=== PATIENT | female | born 1950 | race Caucasian/White ===

== ENCOUNTER 2018-10-17 17:42 | Emergency (ER) | payer MEDICARE, SELFPAY ==
[2018-10-17 17:43] VITALS: BP 198/80; PULSE 71; RESP 14; TEMP 36.4; O2SAT 99; BMI 27.8
--- NOTE | 2018-10-17 18:28 | ED.DCSUM_ITS ---
History of Present Illness Chief Complaint: Foreign Body Informant: Patient Onset: Hours - 4-5 Context: Sudden Onset - eating armenian w/ chicken Timing: Continuous Quality: FB sens Location: lower throat Current Severity: Moderate Maximum Severity: Moderate Worsened by: trying to swallow Relieved by: nothing Associated Symptoms: vomiting Narrative: Patient states she had this happen one other time but it self resolved. She has had an EGD in the past but remotely, states it was unremarkable. She states she did not detect any bones but suspect she ate a large chunk of meat that she did not chew well, and it got stuck when she swallowed it. Since then, she has been swallowing her saliva, and each time results in vomiting it up. Food still feels stuck. She is on Eliquis because of a history of atrial fibrillation. Denies having any hematemesis. No coughing, choking, shortness of breath. - Past Medical History (1) Atrial fibrillation Status: Chronic (2) Hypertension Status: Chronic (3) Hyperlipidemia Status: Chronic Past Medical History - Allergies and Home Meds Allergies/Adverse Reactions: Allergies amoxicillin Allergy (Verified 10/17/18 17:43) Hives clavulanic acid [From Augmentin] Allergy (Verified 10/17/18 17:43) Hives Penicillins Allergy (Verified 10/17/18 17:43) Hives codeine Adverse Reaction (Verified 10/17/18 17:43) Vomiting Primary Care Physician: Marco Hess MD [Primary Care Provider] - Lives: Spouse/ Significant Other Smoking Status: Never smoker Review of Systems General: Denies: Chills, Fever, Sweats Eyes: Denies: Visual changes - bilaterally, Diplopia ENT: Reports: - - Throat discomfort foreign body sensation. Denies: Rhinorrhea Cardiovascular: Denies: Chest pain, Palpitations Respiratory: Denies: Dyspnea, Cough, Dyspnea on exertion Gastrointestinal: Reports: Nausea, Vomiting. Denies: Abdominal pain, Diarrhea, Melena, Hematochezia Genitourinary: Denies: Dysuria, Hematuria, Frequency Musculoskeletal: Denies: Back pain, Extremity Pain Skin: Denies: Rash, Wounds Neurological: Reports: Headache - Since vomiting several times; bifrontal. Denies: Weakness, Numbness Physical Exam Vital Signs/Narrative: Vital Signs Temp Pulse Resp BP Pulse Ox 10/17/18 17:43 97.5 F L 71 14 198/80 H 99 Inital Vital Signs reviewed: Yes General: Well nourished, Well developed, No Acute Distress Head: Normocephalic, Atraumatic Eyes: Perrl, EOMI ENT: Moist mucous membranes, No rhinorrhea, - - Posterior oropharynx clear. No stridor. No hoarseness. Neck: Supple, Nontender Cardiovascular: Regular rate, Regular rhythm, No murmurs Respiratory: No distress, CTA bilaterally - Equal breath signs bilaterally., Chest nontender Abdomen: Soft, Nontender, Nondistended, Normal bowel sounds Back: Nontender, Normal Inspection Skin: Normal color, No rash Neurological: Alert, Oriented x3, Cranial nerves II-XII grossly intact, Normal Strength, Normal Sensation, Normal Gait Psychological: Normal affect, Normal Mood Diagnostic/Tx/Re-eval Clinical Impression(s) from Imaging Studies Chest X-Ray 10/17/18 18:29 IMPRESSION: Normal x-ray examination of the chest. Electronically Signed: Maciej Norris MD at 19:01 EDT , Service support , - Medical Decision Making Patient was treated with glucagon, and she was observed. She felt the food go down. She states she feels much better. I gave her some water she swallowed without any difficulty. Certainly I am comfortable with her being discharged at this time, she saw Dr. Lock in the past for an EGD and I will give her his information again as he still comes to [facility] and does outpatient scopes. ED Disposition - Plan for ED Patient: Disposition: Home or Assisted Living Diagnosis: FB esophagus Instructions: ESOPHAGEAL FOREIGN BODY, Resolved Referrals: Blake Lock MD [CONSULTING PHYSICIAN] - (Call for appointment for endoscopy to be performed here at [facility].)
--- NOTE | 2018-10-17 18:29 | RAD_ITS ---
STUDY: X-RAY CHEST REASON FOR EXAM: Female, 68 years old. PT REPORTS WITH CHICKEN STUCK IN THROAT SINCE 1430. DENIES SOB OR DIFFICULTY BREATHING. TECHNIQUE: Single AP portable view of the chest. COMPARISON: None. FINDINGS: Surgical clips seen related to the right breast. The lungs are clear and expanded. There is no demonstrated pleural abnormality. Normal size heart. Normal mediastinum and isaac. Normal visualized pulmonary arteries. Normal visualized aortic arch and descending thoracic aorta. Normal visualized thoracic spine. Normal visualized ribs, clavicles, and shoulders. There is no demonstrated abnormality of the visualized soft tissue structures of the upper abdomen. RAD/Chest 1 View (Portable) IMPRESSION: Normal x-ray examination of the chest. Electronically Signed: Maciej Norris MD at 19:01 EDT , Service support ,
[2018-10-17] MEDS: Glucagon 1 MG/ML Syringe IV (18:45)
[2018-10-17 18:46] LABS: Bedside Glucose 139 mg/dL (70-110)
[2018-10-17 20:20] VITALS: BP 141/69; PULSE 70; RESP 17; O2SAT 96
[2018-10-17 20:39] VITALS: BP 144/71; PULSE 68; RESP 17; O2SAT 99
== END 2018-10-17 20:40 | disposition home or self-care (01) ==
PROVIDERS: Emergency Provider Emergency Medicine; Family Provider Family Medicine; PCP Family Medicine
DX: T18.128A Food in esophagus causing other injury, initial encounter (principal); X58.XXXA Exposure to other specified factors, initial encounter; Y93.9 Activity, unspecified; Y92.9 Unspecified place or not applicable; I48.91 Unspecified atrial fibrillation; I10 Essential (primary) hypertension; E78.5 Hyperlipidemia, unspecified; Z79.01 Long term (current) use of anticoagulants; Z79.899 Other long term (current) drug therapy
CPT/HCPCS: 71045; 82962; 96374; 99283; A4216; J1610

== ENCOUNTER 2020-03-13 18:00 | Outpatient (RCR) | payer SELFPAY ==
[2020-02-28 19:08] VITALS: BMI 29.7
[2020-03-06 19:46] VITALS: BMI 29.7
[2020-03-14 12:15] VITALS: BMI 29.3
== END 2020-03-13 23:59 ==
LOC: NS 18:00
PROVIDERS: Family Provider Family Medicine; PCP Family Medicine
DX: Z71.3 Dietary counseling and surveillance (principal)
CPT/HCPCS: G9873; G9891

== ENCOUNTER 2020-04-10 18:00 | Outpatient (RCR) | payer SELFPAY ==
[2020-03-06 19:46] VITALS: BMI 29.7
[2020-03-14 12:15] VITALS: BMI 29.3
[2020-03-20 19:24] VITALS: BMI 29.3
[2020-03-27 19:30] VITALS: BMI 29.0
[2020-04-03 19:00] VITALS: BMI 28.8
[2020-04-10 19:39] VITALS: BMI 28.6
== END 2020-04-15 23:59 ==
LOC: NS 18:00
PROVIDERS: Family Provider Family Medicine; PCP Family Medicine
DX: Z71.3 Dietary counseling and surveillance (principal)
CPT/HCPCS: G9874; G9891

== ENCOUNTER 2020-04-24 16:47 | Outpatient (RCR) | payer MEDICARE, SELFPAY ==
[2020-04-24] MEDS: COVID-19 VACC, MRNA(PFIZER)/PF 30 MCG/0.3 ML SYRINGE IM (12:37)
[2020-04-24 19:19] VITALS: BMI 28.5
[2020-05-15] MEDS: COVID-19 VACC, MRNA(PFIZER)/PF 30 MCG/0.3 ML SYRINGE IM (12:29)
== END 2020-07-24 23:59 ==
LOC: IMMUN 16:47
PROVIDERS: PCP Family Medicine; Visit Provider Family Medicine
DX: Z23 Encounter for immunization (principal)
CPT/HCPCS: 0001A; 0002A; 91300

== ENCOUNTER 2020-04-24 18:00 | Outpatient (RCR) | payer SELFPAY ==
[2020-04-24 19:19] VITALS: BMI 28.5
[2020-05-08 19:39] VITALS: BMI 28.0
== END 2020-05-16 23:59 ==
LOC: NS 18:00
PROVIDERS: Family Provider Family Medicine; PCP Family Medicine
DX: Z71.3 Dietary counseling and surveillance (principal)
CPT/HCPCS: G9891

== ENCOUNTER 2020-06-05 18:00 | Outpatient (RCR) | payer MEDICARE, SELFPAY ==
[2020-05-23 13:23] VITALS: BMI 27.6
[2020-06-06 20:04] VITALS: BMI 27.8
== END 2020-06-15 23:59 ==
LOC: NS 18:00
PROVIDERS: Family Provider Family Medicine; PCP Family Medicine
DX: Z71.3 Dietary counseling and surveillance (principal)
CPT/HCPCS: G9891

== ENCOUNTER 2020-07-03 18:00 | Outpatient (RCR) | payer SELFPAY ==
[2020-06-19 20:16] VITALS: BMI 27.2
[2020-07-03 19:35] VITALS: BMI 27.2
== END 2020-07-16 23:59 ==
LOC: NS 18:00
DX: Z71.3 Dietary counseling and surveillance (principal)
CPT/HCPCS: G9891

== ENCOUNTER 2020-08-14 18:00 | Outpatient (RCR) | payer SELFPAY ==
[2020-07-17 19:36] VITALS: BMI 27.1
[2020-08-01 13:21] VITALS: BMI 26.9
[2020-08-14 20:02] VITALS: BMI 26.6
== END 2020-08-15 23:59 ==
LOC: NS 18:00
DX: Z71.3 Dietary counseling and surveillance (principal)
CPT/HCPCS: G9891

== ENCOUNTER 2020-09-04 18:00 | Outpatient (RCR) | payer SELFPAY ==
[2020-09-03 18:12] VITALS: BMI 26.6
[2020-09-04 19:46] VITALS: BMI 26.8
== END 2020-09-15 23:59 ==
LOC: NS 18:00
DX: Z71.3 Dietary counseling and surveillance (principal)
CPT/HCPCS: G9891

== ENCOUNTER 2020-10-16 18:00 | Outpatient (RCR) | payer SELFPAY ==
[2020-09-19 08:45] VITALS: BMI 26.7
[2020-10-03 09:52] VITALS: BMI 26.8
[2020-10-16 19:44] VITALS: BMI 26.9
== END 2020-10-16 23:59 ==
LOC: NS 18:00
DX: Z71.3 Dietary counseling and surveillance (principal)
CPT/HCPCS: G9891

== ENCOUNTER 2020-11-13 18:00 | Outpatient (RCR) | payer SELFPAY ==
[2020-10-17 00:23] VITALS: BMI 26.9
[2020-10-31 10:45] VITALS: BMI 26.7
[2020-11-14 12:48] VITALS: BMI 26.6
== END 2020-11-15 23:59 ==
LOC: NS 18:00
DX: Z71.3 Dietary counseling and surveillance (principal)
CPT/HCPCS: G9891

== ENCOUNTER 2020-12-11 18:00 | Outpatient (RCR) | payer SELFPAY ==
[2020-11-16 00:17] VITALS: BMI 26.6
[2020-11-27 19:30] VITALS: BMI 26.6
[2020-12-11 19:27] VITALS: BMI 27.1
== END 2020-12-16 23:59 ==
LOC: NS 18:00
DX: Z71.3 Dietary counseling and surveillance (principal)
CPT/HCPCS: G9891

== ENCOUNTER 2021-01-08 18:00 | Outpatient (RCR) | payer SELFPAY ==
[2020-12-17 00:14] VITALS: BMI 27.1
[2021-01-09 10:33] VITALS: BMI 27.1
== END 2021-01-15 23:59 ==
LOC: NS 18:00
DX: Z71.3 Dietary counseling and surveillance (principal)
CPT/HCPCS: G9891

== ENCOUNTER → 2021-01-24 13:05 | Outpatient (CLI) | payer SELFPAY ==
--- NOTE | 2021-01-23 15:57 | NURSING ---
PT VOICEMAIL FULL. INSTRUCTIONS GIVEN TO .
[2021-01-24 13:35] VITALS: BP 116/61; PULSE 70; RESP 16; O2SAT 96; BMI 27.0
--- NOTE | 2021-01-24 14:25 | CT_ITS ---
STUDY: CT CHEST WITHOUT CONTRAST REASON FOR EXAM: Female, 70 years old. FAMILY HX OF ISCHEMIC. Cardiac ovary examination. RADIATION DOSAGE (If Supplied By Facility): CTDIvol = ( 12.19 ) mGy, DLP = ( 219.42 ) mGycm TECHNIQUE: Transaxial imaging was performed without the administration of intravenous contrast material. Individualized dose optimization techniques were used for this CT. COMPARISON: None. FINDINGS: There is a 1.4 cm densely calcified nodule in the deep posterior inferior aspect of the right breast. The lungs are normal. There is no demonstrated pleural abnormality. There are calcifications of the coronary arteries. There are multiple small lymph nodes within the mediastinum, which are normal in size and morphology most compatible with reactive lymph hyperplasia. Normal hilar regions. Normal unenhanced pulmonary arteries. There is atherosclerotic calcification of the aortic arch with tortuosity and elongation of the aortic arch and descending thoracic aorta. There are multi-level degenerative changes of the thoracic spine. Small hiatal hernia. CT/Limited Chest CT w/CCTA IMPRESSION: 1.4 cm densely calcified nodule in the deep posterior inferior aspect of the right breast. Coronary artery calcification. Electronically Signed: Jeff Patricia MD at 14:47 EST , Service support ,
--- NOTE | 2021-01-24 17:11 | CA.SCORE ---
Calcium Scoring Coronary Calcium Scoring: High-resolution Computed Tomographic imaging of the chest was performed on [01/24/2021], with particular attention paid to the coronary arteries. Images from the examination were analyzed for the presence and extent of coronary artery calcification , using coronary calcium quantification software. The patient tolerated the procedure well and there were no complications. The results of the coronary calcification analysis are provided below. Left main coronary artery score 9.75. Left anterior descending artery score 630 Left circumflex artery score 225 Right coronary artery score 223 Total Agatston score 1088 The above represents a percentile ranking of greater than 90%. Conclusion: There is extensive plaque burden noted with a high likelihood of at least 1 coronary artery with a stenosis greater than 50%. Calcium Scoring Interpretation: 0 No identifiable atherosclerotic plaque. Very low cardiovascular disease risk. <5% chance of presence coronary artery disease A Negative Examination 1-10 Minimal Plaque burden. Significant coronary artery disease very unlikely. 11-100 Mild plaque burden. Likely mild or minimal coronary atherosclerosis. 101-400 Moderate plaque burden Moderate non-obstructive coronary artery disease highly likely. Over 400 Extensive plaque burden. High likelihood of at least one significant coronary stenosis (>50% diameter)
== END ==
PROVIDERS: PCP Student in an Organized Health Care Education/Training Program; Referring Provider Internal Medicine Cardiovascular Disease; Visit Provider Internal Medicine Cardiovascular Disease
DX: Z13.6 Encounter for screening for cardiovascular disorders (principal); Z82.49 Family history of ischemic heart disease and other diseases of the circulatory system
CPT/HCPCS: 75571; 76380

== ENCOUNTER 2021-02-05 18:00 | Outpatient (RCR) | payer SELFPAY ==
[2021-01-16 00:19] VITALS: BMI 27.1
[2021-01-22 19:30] VITALS: BMI 27.8
[2021-02-06 19:21] VITALS: BMI 28.3
== END 2021-02-15 23:59 ==
LOC: NS 18:00
DX: Z71.3 Dietary counseling and surveillance (principal); E66.9 Obesity, unspecified
CPT/HCPCS: G9891

== ENCOUNTER → 2021-09-23 | Outpatient (CLI) | payer MEDICARE, SELFPAY ==
[2021-09-23 15:28] LABS: Absolute Lymphocyte Count 1.99 X10^3/uL (0.83-4.51); Absolute Neutrophil Count 6.3 X10^3/uL (2.0-7.7); Basophil% 1.1 % (0-1); Eosinophil# 0.08 X10^3/uL; Eosinophils% 0.9 % (0-5); Hematocrit 43.2 % (37-47); Hemoglobin 14.2 g/dL (12.0-15.0); Lymphocyte # 1.99 X10^3/ul (0.83-4.51); Lymphocyte % 21.8 % (19-41); Mean Corp Hgb Conc 32.9 g/dL (32-36); Mean Corpuscular Hgb 30.5 pg (27.0-32.0); Mean Corpuscular Volume 92.9 fL (81-99); Mean Platelet Vol. 10.3 fl (6.2-12.0); Monocyte# 0.64 X10^3/uL; NRBC Flagged by Analyzer 0 % (0-5); Neutrophil # 6.31 X10^3/uL (2.7-7.7); Platelet Count 275 K/mm3 (150-450); RBC Distribution Width CV 12.7 % (11.6-14.6); RBC Distribution Width SD 43.4 fl (35.1-43.9); Red Blood Count 4.65 M/mm3 (4.2-5.4); White Blood Count 9.1 K/mm3 (4.4-11.0)
[2021-09-23 17:01] LABS: AST(SGOT) 26 U/L (15-37); Alanine Aminotransfer ALT/SGPT 36 U/L (13-56); Alkaline Phosphatase 89 U/L (45-117); Anion Gap 7 (5-15); BUN 31 mg/dL (7-18); BUN/Creat Ratio 26.1 RATIO (10-20); Calcium,Total 9.6 mg/dL (8.5-10.1); Chloride 103 mmol/L (98-107); Creatinine, Serum 1.19 mg/dL (0.55-1.02); EST Glomerular Filtration Rate 48 mL/min (>60); Est Glom Filt Rate - Afr Amer 58 mL/min (>60); Glucose 92 mg/dL (74-106); Potassium 3.8 mmol/L (3.5-5.1); Sodium Level 137 mmol/L (136-145)
[2021-09-24 09:26] LABS: Hepatitis C Antibody Non-Reactive (Nonreactive)
== END | disposition home or self-care (01) ==
PROVIDERS: PCP Student in an Organized Health Care Education/Training Program; Referring Provider Physician Assistant; Visit Provider Physician Assistant
DX: L66.1 Lichen planopilaris (principal)
CPT/HCPCS: 36415; 80053; 85025; 86803

== ENCOUNTER 2022-01-02 14:16 | Emergency (ER) | payer MEDICARE, SELFPAY ==
[2022-01-02 14:17] VITALS: BP 166/84; PULSE 76; RESP 14; TEMP 36.4; O2SAT 100; BMI 27.1
[2022-01-02 14:46] LABS: Absolute Lymphocyte Count 2.72 X10^3/uL (0.83-4.51); Absolute Neutrophil Count 7.3 X10^3/uL (2.0-7.7); Basophil# 0.13 X10^3/uL; Basophil% 1.2 % (0-1); Eosinophils% 0.9 % (0-5); Hematocrit 47.7 % (37-47); Hemoglobin 15.6 g/dL (12.0-15.0); Lymphocyte # 2.72 X10^3/ul (0.83-4.51); Lymphocyte % 24.9 % (19-41); Mean Corp Hgb Conc 32.7 g/dL (32-36); Mean Corpuscular Hgb 30.4 pg (27.0-32.0); Mean Corpuscular Volume 92.8 fL (81-99); Mean Platelet Vol. 9.8 fl (6.2-12.0); Monocyte# 0.62 X10^3/uL; Monocyte% 5.7 % (0-10); NRBC Flagged by Analyzer 0 % (0-5); Neutrophil # 7.34 X10^3/uL (2.7-7.7); Platelet Count 329 K/mm3 (150-450); RBC Distribution Width CV 12.5 % (11.6-14.6); RBC Distribution Width SD 42.9 fl (35.1-43.9); Red Blood Count 5.14 M/mm3 (4.2-5.4); White Blood Count 10.9 K/mm3 (4.4-11.0)
[2022-01-02 14:56] LABS: Anion Gap 6 (5-15); BUN 31 mg/dL (7-18); BUN/Creat Ratio 24.8 RATIO (10-20); Calcium,Total 10.5 mg/dL (8.5-10.1); Chloride 101 mmol/L (98-107); Creatinine, Serum 1.25 mg/dL (0.55-1.02); EST Glomerular Filtration Rate 45 mL/min (>60); Est Glom Filt Rate - Afr Amer 55 mL/min (>60); Estimated Creatinine Clearance 38.22 ml/min; Glucose 114 mg/dL (74-106); Potassium 4.2 mmol/L (3.5-5.1); Sodium Level 136 mmol/L (136-145)
--- NOTE | 2022-01-02 15:02 | ED.VIS.FEGU ---
HPI HPI - Female History of Present Illness Chief Complaint: Flank Pain Narrative Narrative: 71-year-old female with flank pain for the last 2 weeks. She states its achy and has been intermittent. Last night she had nausea and vomiting. This is also intermittent. No fever, chills. She does say that she is had some dysuria and hematuria over the last 24 hours. She was seen in urgent care and they were very suspicious of a kidney stone. She was referred to the ER for evaluation. Patient has no history of kidney stones. She states he is otherwise been in her normal state of health. PFSH PFS Medical History Atrial fibrillation HX: breast cancer Pre-diabetes Home Medications apixaban 5 mg tablet 5 mg PO BID 10/17/18 [History Last Taken Unknown] fluoxetine 20 mg capsule 20 mg PO DAILY 10/17/18 [History Last Taken Unknown] lisinopril 5 mg tablet 5 mg PO DAILY 10/17/18 [History Last Taken Unknown] metoprolol succinate 50 mg tablet,extended release 24 hr 50 mg PO DAILY 10/17/18 [History Last Taken Unknown] rosuvastatin 20 mg tablet 20 mg PO QHS 10/17/18 [History Last Taken Unknown] hydrocodone-acetaminophen 5-325mg 5mg-325mg 1 tab PO Q6H PRN pain 3 days #12 tabs 01/02/22 [Rx Last Taken Unknown] ondansetron 4 mg disintegrating tablet 4 mg PO Q8H PRN nausea and vomiting #10 tabs 01/02/22 [Rx Last Taken Unknown] Allergy/AdvReac Type Severity Reaction Status Date / Time adhesive tape [surgical tape] Allergy Hives Verified 01/02/22 14:18 amoxicillin Allergy Hives Verified 01/02/22 14:18 clavulanic acid Allergy Hives Verified 01/02/22 14:18 [From Augmentin] Penicillins Allergy Hives Verified 01/02/22 14:18 codeine AdvReac Vomiting Verified 01/02/22 14:18 Social History Smoking Status: Never smoker ROS ROS ED Constitutional Constitutional ED: Denies chills or fever(s) Eyes Eyes: Denies change in vision or diplopia ENT ENT ED: Denies rhinorrhea or sore throat Cardiovascular Cardiovascular: Denies chest pain or palpitations Respiratory/Chest Respiratory/Chest: Denies cough or dyspnea Gastrointestinal Gastrointestinal: Reports nausea and vomiting Genitourinary Genitourinary ED: Reports dysuria and hematuria Musculoskeletal Musculoskeletal: Reports other Details: Left flank pain Integumentary Denies abscess or Abrasions Neurologic Neurologic: Denies headache(s) or paresthesias Psychiatric Psychiatric: Denies anxiety or depression EXAM Physical Exam Const Vital Signs: 01/02/22 14:17 Temperature 97.6 F L Temperature Source Temporal Pulse Rate 76 Respiratory Rate 14 Blood Pressure 166/84 H Blood Pressure Mean 111 Pulse Ox 100 Oxygen Delivery Method Room Air Positive well nourished General Appearance ED: NAD; Negative for pallor HEENT Reports moist mucous membranes Eyes PERRL and EOMs intact bilaterally Neck no lymphadenopathy Chest Wall inspection of chest normal and palpation of chest normal Resp normal respiratory effort and clear to auscultation bilaterally Cardio regular rate and regular rhythm Back/Spine General Back: CVA tenderness left Extremity normal to inspection Neuro oriented x3 and CN's II-XII intact bilaterally Sensorium / Orientation: alert Motor Exam: strength 5/5 throughout Psych mental status grossly normal Skin no rashes or lesions noted General Skin Exam: Negative for jaundice or pallor MDM MDM MDM Narrative Medical decision making narrative: Patient presenting with left flank pain for 2 weeks. CBC shows no leukocytosis. Hemoglobin slightly elevated 15.6. Platelets normal 329. Creatinine 1.25 and near baseline. Sodium potassium are normal. Calcium slightly elevated 10.5. Patient was given Toradol for pain and she does not want a thing stronger. CT of the abdomen pelvis without contrast shows a 1.1 cm x 0.8 cm calculus in the left renal pelvis with only minimal hydronephrosis. Urinalysis shows occult blood without evidence of infection. Patient is done well with just Toradol here in the ED. I think she will need to follow-up with urology. I will give her some [place] and Zofran for home in case she does have breakthrough pain. Impression: 1. Hematuria 2. Kidney stone 3. Flank pain 4. Nausea/vomiting Lab Data Attestation: I reviewed the patient's lab results. Labs: Laboratory Results - last 24 hr 01/02/22 01/02/22 01/02/22 14:27 14:27 15:18 WBC 10.9 RBC 5.14 Hgb 15.6 H Hct 47.7 H MCV 92.8 MCH 30.4 MCHC 32.7 RDW Std Deviation 42.9 RDW Coeff of John 12.5 Plt Count 329 MPV 9.8 Immature Gran % (Auto) 0.300 Neut % (Auto) 67.0 Lymph % (Auto) 24.9 Frio % (Auto) 5.7 Eos % (Auto) 0.9 Baso % (Auto) 1.2 H Absolute Neuts (auto) 7.3 Absolute Lymphs (auto) 2.72 Nucleated RBC % 0 Sodium 136 Potassium 4.2 Chloride 101 Carbon Dioxide 29.0 Anion Gap 6 BUN 31 H Creatinine 1.25 H Estim Creat Clear Calc 38.22 Est GFR (MDRD) Af Amer 55 L Est GFR (MDRD) Non-Af 45 L BUN/Creatinine Ratio 24.8 H Glucose 114 H Calcium 10.5 H Urine Color Brown Urine Clarity Turbid Urine pH 6.5 Ur Specific [place] 1.025 Urine Protein 500 H Urine Glucose (UA) Normal Urine Ketones 50 H Urine Occult Blood 250 H Urine Nitrite Negative Urine Bilirubin Negative Urine Urobilinogen Normal Ur Leukocyte Esterase 25 H Radiography Diagnostic Testing: Clinical Impression(s) from Imaging Studies Abdomen/Pelvis CT 01/02/22 15:06 IMPRESSION: 1.1 cm x 0.8 cm calculus in the left renal pelvis without significant hydronephrosis. Fatty infiltration of the liver. Electronically Signed: Jeff Patricia MD at 15:28 EST , Discharge Plan Triage Chief Complaint: Flank Pain ED Provider: William Dockery Dx/Rx/DC Orders Prescriptions: New hydrocodone-acetaminophen 5-325 mg tablet 1 tab PO Q6H PRN (Reason: pain) 3 Days Qty: 12 0RF ondansetron 4 mg tablet,disintegrating 4 mg PO Q8H PRN (Reason: nausea and vomiting) Qty: 10 0RF No Action metoprolol succinate 50 MG tablet 50 mg PO DAILY lisinopril 5 MG tablet 5 mg PO DAILY Label Comments: Take 1 tablet by mouth once daily. fluoxetine 20 MG capsule 20 mg PO DAILY Label Comments: Take 1 capsule by mouth once daily. rosuvastatin 20 MG tablet 20 mg PO QHS Label Comments: TAKE 1 TABLET BY MOUTH AT BEDTIME apixaban 5 MG tablet 5 mg PO BID Primary Care Provider: Mono Morrison Referrals: Beba Hendricks MD [Med Staff - Active Staff] - As soon as possible Mono Morrison DO [Primary Care Provider] - Disposition Disposition: Home, Self Care
[2022-01-02] MEDS: Ketorolac 15 MG/ML Vial IV (15:05)
--- NOTE | 2022-01-02 15:06 | CT_ITS ---
STUDY: CT ABDOMEN AND PELVIS WITHOUT CONTRAST REASON FOR EXAM: Female, 71 years old. Left flank pain. Hematuria. RADIATION DOSAGE (If Supplied By Facility): CTDIvol = ( 9.02 ) mGy, DLP = ( 459.63 ) mGycm TECHNIQUE: Transaxial images were obtained from the dome of the diaphragm to the symphysis pubis without oral contrast, and without intravenous contrast. Sagittal and coronal images were reconstructed. Individualized dose optimization techniques were used for this CT. COMPARISON: None. FINDINGS: The visualized lung bases are unremarkable. Coronary artery calcification. There is decreased attenuation of the liver consistent with steatosis. Impression multiple small gallstones. Normal spleen. Normal pancreas. Normal bilateral adrenal glands. Normal right kidney. There is a 1.1 cm x 0.8 cm x 1.2 cm calculus in the left renal pelvis. No significant hydronephrosis is seen. There is a small hiatal hernia. Normal small intestine. Normal colon. The appendix is visualized and appears normal. There is diffuse atherosclerotic calcification of the abdominal aorta and its major visceral branches, without a demonstrated aneurysm. Normal inferior vena cava. There is borderline retroperitoneal lymphadenopathy with enlarged nodes no greater than 10mm in the short axis diameter. Normal urinary bladder. Normal abdominal wall. Normal osseous structures. CT/Abdomen/Pelvis without Cont IMPRESSION: 1.1 cm x 0.8 cm calculus in the left renal pelvis without significant hydronephrosis. Fatty infiltration of the liver. Electronically Signed: Jeff Patricia MD at 15:28 EST ,
[2022-01-02 16:01] LABS: Bacteria 0 SEEN /hpf (None Seen); Mucous, Urine 0 SEEN /hpf (<or=2+)
[2022-01-02 16:05] LABS: Color, Urine Brown (Yellow); Glucose, Dipstick Normal (Normal); Ketone-Dipstick 50 mg/dl (Negative); Leukocyte Esterase-Dipstick 25 /ul (Negative); Nitrite-Dipstick Negative (Negative); Occult Blood-Urine 250 /ul (Negative); Protein-Dipstick 500 mg/dl (Negative); Specific Gravity, Urine 1.025 (1.002-1.030); Urine Bilirubin Dipstick Negative (Negative); Urine Clarity Turbid (Clear); Urine Urobilinogen Normal (Normal); Urine pH 6.5 (5.0 - 8.0)
[2022-01-02 16:19] LABS: Amorphous Sediment 2+ URATE; Red Blood Cells-Urine > 100 SEEN /hpf (0-5); Squamous Epithelial Cells - UA 5-10 SEEN /hpf (5-10); White Blood Cells 0-5 SEEN /hpf (0-5)
[2022-01-02 16:22] VITALS: BP 127/63; PULSE 60; RESP 16; O2SAT 98
== END 2022-01-02 16:34 | disposition home or self-care (01) ==
PROVIDERS: Emergency Provider Student in an Organized Health Care Education/Training Program; PCP Student in an Organized Health Care Education/Training Program; Visit Provider Student in an Organized Health Care Education/Training Program
DX: N13.2 Hydronephrosis with renal and ureteral calculous obstruction (principal); R10.9 Unspecified abdominal pain; R11.2 Nausea with vomiting, unspecified; R31.9 Hematuria, unspecified; R30.0 Dysuria
CPT/HCPCS: 74176; 80048; 81001; 85025; 96374; 99283; A4216

== ENCOUNTER 2022-01-07 20:59 | Observation (INO) | payer MEDICARE, SELFPAY ==
[2022-01-07 21:00] VITALS: BP 170/98; PULSE 84; RESP 16; TEMP 36.3; O2SAT 98; BMI 27.6
--- NOTE | 2022-01-07 22:14 | EDS_ITS ---
HPI History of Present Illness Chief Complaint: Flank Pain Informant: patient Onset/Context/Timing Onset: Days (5) Context: Sudden Onset Timing: Continuous Quality: Dull Location: Left flank and left lower abdomen Worsened by: Nothing Relieved by: Nothing Narrative Narrative: Patient presents with left flank pain that became worse today. Patient was seen here recently diagnosed with kidney stone on the left. Patient states that her pain has gotten worse tonight. Patient describes it as dull pain. Patient states it is over the left flank and left lower abdomen. Patient states nothing makes it worse and nothing makes it better. Patient denies any fevers or ch ills. Patient admits to some nausea and vomiting. Patient admits to some hematuria. Patient states her pain radiates into her back and flank. Patient also admits to some constipation. Prior similar symptoms: Yes PFSH [facility] Medical History (Updated 01/07/22 @ 23:[address] Yan Hoover, DO) Atrial fibrillation HX: breast cancer Pre-diabetes Home Medications apixaban 5 mg tablet 5 mg PO BID 10/17/18 [History Last Taken Unknown] fluoxetine 20 mg capsule 20 mg PO DAILY 10/17/18 [History Last Taken Unknown] lisinopril 5 mg tablet 5 mg PO DAILY 10/17/18 [History Last Taken Unknown] metoprolol succinate 50 mg tablet,extended release 24 hr 50 mg PO DAILY 10/17/18 [History Last Taken Unknown] rosuvastatin 20 mg tablet 20 mg PO QHS 10/17/18 [History Last Taken Unknown] hydrocodone-acetaminophen 5-325mg 5mg-325mg 1 tab PO Q6H PRN pain 3 days #12 tabs 01/02/22 [Rx Last Taken Unknown] ondansetron 4 mg disintegrating tablet 4 mg PO Q8H PRN nausea and vomiting #10 tabs 01/02/22 [Rx Last Taken Unknown] Allergy/AdvReac Type Severity Reaction Status Date / Time adhesive tape [surgical tape] Allergy Hives Verified 01/07/22 21:00 amoxicillin Allergy Hives Verified 01/07/22 21:00 cephalexin [From Keflex] Allergy Rash Verified 01/07/22 21:00 clavulanic acid Allergy Hives Verified 01/07/22 21:00 [From Augmentin] Penicillins Allergy Hives Verified 01/07/22 21:00 codeine AdvReac Vomiting Verified 01/07/22 21:00 Surgical History (Updated 01/07/22 @ 22:[address] Yan Hoover DO) History of lumpectomy of right breast Hx of appendectomy Social History Smoking Status: Never smoker ROS ROS ED Constitutional Constitutional ED: Denies chills or fever(s) Eyes Eyes: Denies blurry vision or change in vision ENT ENT ED: Denies rhinorrhea or sore throat Cardiovascular Cardiovascular: Reports palpitations; Denies chest pain Respiratory/Chest Respiratory/Chest: Denies cough or dyspnea Gastrointestinal Gastrointestinal: Reports constipation, nausea and vomiting Genitourinary Genitourinary ED: Reports hematuria; Denies dysuria Musculoskeletal Musculoskeletal: Reports back pain; Denies neck pain Integumentary Denies abscess or rash Neurologic Neurologic: Denies headache(s) or weakness Allergic/Immunologic Allergic/Immunologic ED: Denies mouth swelling or urticaria EXAM Physical Exam Const Vital Signs: 01/07/22 21:00 01/07/22 22:10 Temperature 97.3 F L Temperature Source Temporal Pulse Rate 84 Respiratory Rate 16 Respiratory Effort Normal Respiratory Pattern Normal Blood Pressure 170/98 H Blood Pressure Mean 122 Pulse Ox 98 Oxygen Delivery Method Room Air Positive well nourished and well developed General Appearance ED: well developed and NAD HEENT Reports moist mucous membranes Neck supple and no JVD Resp normal respiratory effort and clear to auscultation bilaterally Cardio regular rate and regular rhythm GI normal to inspection, nondistended, normoactive bowel sounds and non-distended Palpation: soft and tender LLQ and suprapubic Back/Spine General Back: CVA tenderness left Extremity normal to inspection General Extremety ED: Negative for edema or tenderness General Extremity: Negative for edema Neuro oriented x3, CN's II-XII intact bilaterally and no sensory deficits noted Sensorium / Orientation: alert Motor Exam: strength 5/5 throughout Psych mental status grossly normal MDM MDM MDM Narrative Medical decision making narrative: Patient was given IV fluids, morphine, and Zofran. EKG was obtained. On my interpretation, it showed a normal sinus rhythm with a rate of 65. [place] interval, QRS interval, and QTc intervals were all normal. [place] was normal. There are no acute ST or T wave changes. CBC shows a slight leukocytosis of 12.0. Comprehensive metabolic profile shows a BUN of 37 and creatinine 1.64. These are slightly increased from previous results. Urinalysis shows occult blood of 250 with greater than 100 red blood cells. There is no evidence of urinary tract infection. KUB abdominal x-rays were obtained. There are 2 views. On my interpretation, there is still a large calculus in the left renal pelvis area. There is no evidence of constipation or bowel obstruction. There is no evidence of perforation. Radiologist also interpreted the x-rays and agrees. PT was INR and PTT were within normal limits. Case was discussed with Dr. Hendricks. She will admit the patient for observation and place a stent tomorrow. Patient understands and is agreeable with the plan. All questions were answered. Lab Data Attestation: I reviewed the patient's lab results. Labs: Laboratory Results - last 24 hr 01/07/22 01/07/22 01/07/22 22:10 22:22 22:22 WBC 12.0 H RBC 4.89 Hgb 14.8 Hct 43.9 MCV 89.8 MCH 30.3 MCHC 33.7 RDW Std Deviation 40.9 RDW Coeff of John 12.4 Plt Count 299 MPV 9.8 Immature Gran % (Auto) 0.300 Neut % (Auto) 79.2 H Lymph % (Auto) 14.3 L [place] % (Auto) 4.9 Eos % (Auto) 0.5 Baso % (Auto) 0.8 Absolute Neuts (auto) 9.5 H Absolute Lymphs (auto) 1.71 Nucleated RBC % 0 PT INR APTT Sodium 140 Potassium 4.5 Chloride 103 Carbon Dioxide 27.0 Anion Gap 10 BUN 37 H Creatinine 1.64 H Estim Creat Clear Calc 29.13 Est GFR (MDRD) Af Amer 40 L Est GFR (MDRD) Non-Af 33 L BUN/Creatinine Ratio 22.6 H Glucose 179 H Calcium 11.0 H Total Bilirubin 0.60 AST 23 ALT 31 Alkaline Phosphatase 85 Total Protein 8.6 H Albumin 4.5 Globulin 4.1 Albumin/Globulin Ratio 1.1 Urine Color Red Urine Clarity Turbid Urine pH 7.0 Ur Specific [place] 1.020 Urine Protein 500 H Urine Glucose (UA) Normal Urine Ketones 50 H Urine Occult Blood 250 H Urine Nitrite Negative Urine Bilirubin Negative Urine Urobilinogen Normal Ur Leukocyte Esterase Negative Urine RBC > 100 SEEN Urine WBC 0 SEEN Ur Squamous Epith Cells 0 SEEN Urine Bacteria 0 SEEN Urine Mucus 0 SEEN 01/07/22 22:35 WBC RBC Hgb Hct MCV MCH MCHC RDW Std Deviation RDW Coeff of John Plt Count MPV Immature Gran % (Auto) Neut % (Auto) Lymph % (Auto) [place] % (Auto) Eos % (Auto) Baso % (Auto) Absolute Neuts (auto) Absolute Lymphs (auto) Nucleated RBC % PT 14.6 INR 1.2 APTT 33.1 Sodium Potassium Chloride Carbon Dioxide Anion Gap BUN Creatinine Estim Creat Clear Calc Est GFR (MDRD) Af Amer Est GFR (MDRD) Non-Af BUN/Creatinine Ratio Glucose Calcium Total Bilirubin AST ALT Alkaline Phosphatase Total Protein Albumin Globulin Albumin/Globulin Ratio Urine Color Urine Clarity Urine pH Ur Specific [place] Urine Protein Urine Glucose (UA) Urine Ketones Urine Occult Blood Urine Nitrite Urine Bilirubin Urine Urobilinogen Ur Leukocyte Esterase Urine RBC Urine WBC Ur Squamous Epith Cells Urine Bacteria Urine Mucus Radiography Diagnostic Testing: Clinical Impression(s) from Imaging Studies KUB X-Ray 01/07/22 22:45 IMPRESSION: 15 mm left renal calculus stable to slightly migrated compared to the prior given differences in modality. Electronically Signed: Hari Ngo MD at 22:58 EST , EKG Initial EKG: Attestation: I personally reviewed and interpreted this EKG as follows: Interpretation: Sinus Rhythm (65) and No Acute Injury Pattern Prior EKG tracings: not available for review Prior: No Prior Discharge Plan Dx/Rx/DC Orders Clinical Impression: Calculus of left kidney, Hypertension, Hematuria Disposition Disposition: Acute Care Hospital [facility]
--- NOTE | 2022-01-07 22:18 | EKG12_ITS ---
Test Reason : DYSRHYTHMIA Blood Pressure : / mmHG Vent. Rate : 065 BPM Atrial Rate : 065 BPM P-R Int : 156 ms QRS Dur : 096 ms QT Int : 432 ms P-R-T Axes : 063 061 063 degrees QTc Int : 449 ms Normal sinus rhythm Normal ECG Confirmed by RUSSEL SHAHID, DELIA ([id number]), publication editor MARIA DE JESUS CASTILLO ([id number]) on 01/08/2022 9:14:11 AM Referred By: SASHA Confirmed By:DELIA GOODE MD
[2022-01-07 22:30] LABS: Bacteria 0 SEEN /hpf (None Seen); Mucous, Urine 0 SEEN /hpf (<or=2+); Squamous Epithelial Cells - UA 0 SEEN /hpf (5-10); White Blood Cells 0 SEEN /hpf (0-5)
[2022-01-07 22:32] LABS: Color, Urine Red (Yellow); Glucose, Dipstick Normal (Normal); Ketone-Dipstick 50 mg/dl (Negative); Leukocyte Esterase-Dipstick Negative /ul (Negative); Nitrite-Dipstick Negative (Negative); Occult Blood-Urine 250 /ul (Negative); Protein-Dipstick 500 mg/dl (Negative); Urine Bilirubin Dipstick Negative (Negative); Urine Clarity Turbid (Clear); Urine Urobilinogen Normal (Normal)
[2022-01-07 22:32] LABS: Absolute Lymphocyte Count 1.71 X10^3/uL (0.83-4.51); Absolute Neutrophil Count 9.5 X10^3/uL (2.0-7.7); Basophil# 0.09 X10^3/uL; Basophil% 0.8 % (0-1); Eosinophil# 0.06 X10^3/uL; Eosinophils% 0.5 % (0-5); Hematocrit 43.9 % (37-47); Hemoglobin 14.8 g/dL (12.0-15.0); Lymphocyte # 1.71 X10^3/ul (0.83-4.51); Lymphocyte % 14.3 % (19-41); Mean Corp Hgb Conc 33.7 g/dL (32-36); Mean Corpuscular Hgb 30.3 pg (27.0-32.0); Mean Corpuscular Volume 89.8 fL (81-99); Mean Platelet Vol. 9.8 fl (6.2-12.0); Monocyte# 0.59 X10^3/uL; Monocyte% 4.9 % (0-10); NRBC Flagged by Analyzer 0 % (0-5); Neutrophil # 9.49 X10^3/uL (2.7-7.7); Neutrophil % 79.2 % (47-70); Platelet Count 299 K/mm3 (150-450); RBC Distribution Width CV 12.4 % (11.6-14.6); RBC Distribution Width SD 40.9 fl (35.1-43.9); Red Blood Count 4.89 M/mm3 (4.2-5.4)
[2022-01-07] MEDS: 0.9% Normal Saline 1,000 ML 1000 ML IV (22:35)
[2022-01-07] MEDS: Morphine 4 MG/ML Syringe IV (22:37)
[2022-01-07] MEDS: Ondansetron 4 MG/2 ML Vial IV (22:37)
--- NOTE | 2022-01-07 22:45 | RAD_ITS ---
INDICATION: Kidney stone EXAMINATION/TECHNIQUE: X-RAY - XR Abdomen 1 View COMPARISON: CT abdomen and pelvis 01/02/2022 FINDINGS: Nonobstructive bowel gas pattern. Mild increased stool. Evaluation for free air is limited on supine radiographs. 15 mm calcification at L2-3 level, similar to slightly migrated compared to the prior given differences in modality. RAD/Abdomen Single View (Portable) IMPRESSION: 15 mm left renal calculus stable to slightly migrated compared to the prior given differences in modality. Electronically Signed: Hari Ngo MD at 22:58 EST ,
[2022-01-07 22:53] LABS: Red Blood Cells-Urine > 100 SEEN /hpf (0-5)
[2022-01-07 22:57] LABS: ALB/GLOB Ratio 1.1 RATIO (0.9-2.4); AST(SGOT) 23 U/L (15-37); Alanine Aminotransfer ALT/SGPT 31 U/L (13-56); Albumin, Serum 4.5 g/dL (3.2-5.0); Alkaline Phosphatase 85 U/L (45-117); Anion Gap 10 (5-15); BUN 37 mg/dL (7-18); BUN/Creat Ratio 22.6 RATIO (10-20); Chloride 103 mmol/L (98-107); Creatinine, Serum 1.64 mg/dL (0.55-1.02); EST Glomerular Filtration Rate 33 mL/min (>60); Est Glom Filt Rate - Afr Amer 40 mL/min (>60); Estimated Creatinine Clearance 29.13 ml/min; Globulin 4.1 g/dL (2.2-4.2); Glucose 179 mg/dL (74-106); Potassium 4.5 mmol/L (3.5-5.1); Protein, Total 8.6 g/dL (6.4-8.2); Sodium Level 140 mmol/L (136-145)
[2022-01-07 22:59] LABS: International Normalized Ratio 1.2; Prothrombin Time (Protime)PT. 14.6 SECONDS (11.7-14.9)
[2022-01-07 23:00] LABS: Partial Thromboplast Time 33.1 Seconds (24.1-36.2)
[2022-01-07 23:46] VITALS: BP 191/81; PULSE 70; RESP 18; TEMP 36.8; O2SAT 92
[2022-01-08] VITALS (14 sets, daily range): BP systolic 99–198; BP diastolic 48–70; PULSE 56–69; RESP 16; TEMP 36.4–36.9; O2SAT 92–98; BMI 26.9
[2022-01-08] MEDS: Dext 5%-0.45% NS 1,000 ML 125 ML IV (01:14)
[2022-01-08] MEDS: 0.9% Saline Lock 10 ML Syringe IV ×2 (01:15→01:46)
[2022-01-08] MEDS: Ondansetron 4 MG/2 ML Vial IV (01:45)
[2022-01-08] MEDS: Morphine 2 MG/ML Syringe IV (01:47)
[2022-01-08] MEDS: Metoprolol(XL)Succ 50 MG Tablet PO (07:52)
--- NOTE | 2022-01-08 09:33 | NURSING ---
Pt off floor for surgery
[2022-01-08] MEDS: Lactated Ringers 1,000 ML 15 ML IV (09:43)
--- NOTE | 2022-01-08 10:21 | PCM.HP.STD ---
[facility] - General General Date of Admission: 01/07/22 HPI Narrative MEENAKSHI MADRID, is a 71 F who who was admitted from the emergency room yesterday with a diagnosis of left obstructing UPJ calculus with uncontrolled nausea, vomiting, pain and hematuria. She is already on the schedule for cystoscopy with stent insertion and left renal extracorporal shockwave lithotripsy. She reports that her pain is not controlled after intravenous medication administration. [facility] Medical History (Updated 01/08/22 @ 10:[address] Beba Hendricks MD) Asthma Atrial fibrillation Depression History of stress test HX: breast cancer Post-menopausal Pre-diabetes Renal insufficiency Home Medications apixaban 5 mg tablet 5 mg PO BID 10/17/18 [History Last Taken 01/07/22 10:00] fluoxetine 20 mg capsule 20 mg PO DAILY 10/17/18 [History Last Taken Unknown] lisinopril 5 mg tablet 5 mg PO DAILY 10/17/18 [History Last Taken Unknown] metoprolol succinate 50 mg tablet,extended release 24 hr 50 mg PO DAILY 10/17/18 [History Last Taken Unknown] rosuvastatin 20 mg tablet 20 mg PO QHS 10/17/18 [History Last Taken Unknown] hydrocodone-acetaminophen 5-325mg 5mg-325mg 1 tab PO Q6H PRN pain 3 days #12 tabs 01/02/22 [Rx Last Taken Unknown] ondansetron 4 mg disintegrating tablet 4 mg PO Q8H PRN nausea and vomiting #10 tabs 01/02/22 [Rx Last Taken Unknown] Allergy/AdvReac Type Severity Reaction Status Date / Time adhesive tape [surgical tape] Allergy Hives Verified 01/07/22 21:00 amoxicillin Allergy Hives Verified 01/07/22 21:00 cephalexin [From Keflex] Allergy Rash Verified 01/07/22 21:00 clavulanic acid Allergy Hives Verified 01/07/22 21:00 [From Augmentin] Penicillins Allergy Hives Verified 01/07/22 21:00 codeine AdvReac Vomiting Verified 01/07/22 21:00 Surgical History History of lumpectomy of right breast Hx of appendectomy Social History Smoking Status: Never smoker ROS Constitutional Constitutional: Denies chills, fatigue, fever(s) or lethargy Eyes Eyes: Reports systems reviewed and no addt'l complaints, except as documented ENT HEENT: Reports systems reviewed and no addt'l complaints, except as documented Cardiovascular Cardiovascular: Reports nausea and vomiting; Denies chest pain or dyspnea at rest Respiratory/Chest Respiratory/Chest: Denies chest congestion, chest tightness, cough or inability to speak Gastrointestinal Gastrointestinal: Reports nausea and vomiting Genitourinary Genitourinary: Reports flank pain and hematuria; Denies dysuria, urinary hesitancy or urinary urgency Musculoskeletal Musculoskeletal: Reports systems reviewed and no addt'l complaints, except as documented Integumentary Integumentary: Reports systems reviewed and no addt'l complaints, except as documented Neurologic Neurologic: Reports systems reviewed and no addt'l complaints, except as documented Psychiatric Psychiatric: Reports systems reviewed and no addt'l complaints, except as documented Endocrine Endocrinology: Reports systems reviewed and no addt'l complaints, except as documented Hematologic/Lymphatic Hematologic/Lymphatic: Reports systems reviewed and no addt'l complaints, except as documented Allergic/Immunologic Allergic/Immunologic: Reports systems reviewed and no addt'l complaints, except as documented Vital Signs Vital Signs Vital Signs: 01/07/22 21:00 01/07/22 22:10 01/07/22 23:46 Temperature 97.3 F L 98.3 F Temperature Source Temporal Oral Pulse Rate 84 70 Respiratory Rate 16 18 Respiratory Effort Normal Respiratory Depth Respiratory Pattern Normal Blood Pressure 170/98 H 191/81 H Blood Pressure [BP] Blood Pressure Mean 122 117 Blood Pressure Mean [BP] Blood Pressure Source Blood Pressure Position Blood Pressure Location Pulse Ox 98 92 Oxygen Delivery Method Room Air Room Air 01/08/22 01:02 01/08/22 01:25 01/08/22 00:58 Temperature 98.5 F Temperature Source Oral Pulse Rate 65 69 Respiratory Rate 16 Respiratory Effort Normal Non-Labored Respiratory Depth Normal Respiratory Pattern Normal Blood Pressure 198/70 H Blood Pressure [BP] 161/53 H Blood Pressure Mean 112 Blood Pressure Mean [BP] 89 Blood Pressure Source Blood Pressure Position Blood Pressure Location Pulse Ox 98 Oxygen Delivery Method Room Air Room Air 01/08/22 01:42 01/08/22 07:38 01/08/22 07:52 Temperature 98.5 F 98.4 F Temperature Source Oral Oral Pulse Rate 65 66 66 Respiratory Rate 16 16 Respiratory Effort Respiratory Depth Respiratory Pattern Blood Pressure 161/53 H 160/70 H Blood Pressure [BP] Blood Pressure Mean 89 100 Blood Pressure Mean [BP] Blood Pressure Source Monitor Blood Pressure Position Blood Pressure Location Pulse Ox 98 98 Oxygen Delivery Method Room Air Room Air 01/08/22 08:02 01/08/22 07:42 01/08/22 07:42 Temperature 98.4 F 98.4 F Temperature Source Oral Oral Pulse Rate 66 66 Respiratory Rate 16 16 Respiratory Effort Respiratory Depth Respiratory Pattern Blood Pressure 160/70 H 160/70 H Blood Pressure [BP] Blood Pressure Mean 100 100 Blood Pressure Mean [BP] Blood Pressure Source Monitor Blood Pressure Position Semi-Fowlers Blood Pressure Location Right Arm Pulse Ox 98 98 98 Oxygen Delivery Method Room Air Room Air Room Air 01/08/22 09:00 Temperature Temperature Source Pulse Rate Respiratory Rate Respiratory Effort Normal Respiratory Depth Normal Respiratory Pattern Normal Blood Pressure Blood Pressure [BP] Blood Pressure Mean Blood Pressure Mean [BP] Blood Pressure Source Blood Pressure Position Blood Pressure Location Pulse Ox Oxygen Delivery Method Room Air Weight Weight: 75.65 kg Body Mass Index (BMI) 26.9 Physical Exam Const alert, oriented x3 and no apparent distress General Appearance: cooperative, comfortable and well kempt HEENT normocephalic, head/scalp atraumatic, hearing grossly normal bilaterally, external ears normal, external nose normal and moist oral mucous membranes Eyes no scleral icterus General Eye: normal appearance of both eyes Neck supple General: trachea midline Chest inspection of chest normal Chest: symmetrical chest wall rise Resp normal respiratory effort, normal air movement, no retractions and no use of accessory muscles Cardio regular rate GI soft to palpation, non-tender and non-distended Bladder / Kidney Exam: CVA tenderness left Back/Spine General Back: CVA tenderness left Extremity normal to inspection Skin no rashes or lesions noted, no wounds, skin turgor normal, no jaundice, no petechiae and no mottling Neuro oriented x3, CN's II-XII intact bilaterally and moves all extremities Psych mental status grossly normal, thought process normal, cooperative and affect normal Results Lab / Micro Data Result Diagrams: 01/07/22 22:22 01/07/22 22:22 Labs: Laboratory Results - last 24 hr 01/07/22 22:10: Urine Color Red, Urine Clarity Turbid, Urine pH 7.0, Ur Specific [place] 1.020, Urine Protein 500 H, Urine Glucose (UA) Normal, Urine Ketones 50 H, Urine Occult Blood 250 H, Urine Nitrite Negative, Urine Bilirubin Negative, Urine Urobilinogen Normal, Ur Leukocyte Esterase Negative, Urine RBC > 100 SEEN, Urine WBC 0 SEEN, Ur Squamous Epith Cells 0 SEEN, Urine Bacteria 0 SEEN, Urine Mucus 0 SEEN 01/07/22 22:22: WBC 12.0 H, RBC 4.89, Hgb 14.8, Hct 43.9, MCV 89.8, MCH 30.3, MCHC 33.7, RDW Std Deviation 40.9, RDW Coeff of John 12.4, Plt Count 299, MPV 9.8, Immature Gran % (Auto) 0.300, Neut % (Auto) 79.2 H, Lymph % (Auto) 14.3 L, [place] % (Auto) 4.9, Eos % (Auto) 0.5, Baso % (Auto) 0.8, Absolute Neuts (auto) 9.5 H, Absolute Lymphs (auto) 1.71, Nucleated RBC % 0 01/07/22 22:22: Sodium 140, Potassium 4.5, Chloride 103, Carbon Dioxide 27.0, Anion Gap 10, BUN 37 H, Creatinine 1.64 H, Estim Creat Clear Calc 29.13, Est GFR (MDRD) Af Amer 40 L, Est GFR (MDRD) Non-Af 33 L, BUN/Creatinine Ratio 22.6 H, Glucose 179 H, Calcium 11.0 H, Total Bilirubin 0.60, AST 23, ALT 31, Alkaline Phosphatase 85, Total Protein 8.6 H, Albumin 4.5, Globulin 4.1, Albumin/Globulin Ratio 1.1 01/07/22 22:35: PT 14.6, INR 1.2, APTT 33.1 Radiology Impression KUB X-Ray 01/07/22 22:45 IMPRESSION: 15 mm left renal calculus stable to slightly migrated compared to the prior given differences in modality. Electronically Signed: Hari Ngo MD at 22:58 EST , Assessment & Plan Assessment/Plan (1) Calculus of left kidney: (2) Hematuria: (3) Renal insufficiency: PLAN: Plan cystoscopy with left ureteral stent insertion, informed consent obtained supportive care ESWL as scheduled home later today
[2022-01-08] MEDS: Ciprofloxacin 200 MG/100 ML BAG 100 MG IV (10:28)
--- NOTE | 2022-01-08 10:28 | DCINST_ITS ---
Discharge Instructions Diet Discharge Diet: No restrictions Activity Discharge Activity: Return to Normal Activity Dressing / Incision Call your doctor if you observe: Fever of 101 or Higher, Inability to urinate and Inability to have a bowel movement Follow Up Care Please Follow Up With: Beba Hendricks MD When: as scheduled for surgical intervention Test Results: Test results from this visit will be discussed in further detail at your follow- up appointment, if applicable. Discharge Plan Admission Admit Date/Time: 01/07/22 23:40 Attending Provider: Beba Hendricks Primary Care Provider: Mono Morrison Discharge Orders/Prescriptions Prescriptions: New ondansetron HCl [ondansetron HCl] 8 mg tablet 8 mg PO Q8H PRN PRN (Reason: Nausea) 7 Days Qty: 20 0RF oxycodone-acetaminophen [oxycodone-acetaminophen] 5-325 mg tablet 2 tab PO Q8H PRN PRN (Reason: Pain) 7 Days Qty: 20 0RF sulfamethoxazole-trimethoprim [sulfamethoxazole-trimethoprim] 800-160 mg tablet 1 tab PO BID 3 Days Qty: 6 0RF phenazopyridine [phenazopyridine] 100 mg tablet 100 mg PO TID PRN (Reason: bladder spasms) Qty: 30 3RF Continued metoprolol succinate 50 MG tablet 50 mg PO DAILY lisinopril 5 MG tablet 5 mg PO DAILY Label Comments: Take 1 tablet by mouth once daily. fluoxetine 20 MG capsule 20 mg PO DAILY Label Comments: Take 1 capsule by mouth once daily. rosuvastatin 20 MG tablet 20 mg PO QHS Label Comments: TAKE 1 TABLET BY MOUTH AT BEDTIME apixaban 5 MG tablet 5 mg PO BID hydrocodone-acetaminophen 5-325 mg tablet 1 tab PO Q6H PRN (Reason: pain) 3 Days Qty: 12 0RF ondansetron 4 mg tablet,disintegrating 4 mg PO Q8H PRN (Reason: nausea and vomiting) Qty: 10 0RF Referrals / Follow Up: Mono Morrison DO [Primary Care Provider] - Disposition Disposition (needs filled in before D/C Order can be placed): Home, Self Care
--- NOTE | 2022-01-08 11:01 | OP.PCM_ITS ---
Report of Operation Date of Procedure: 01/08/22 Pre-Operative Diagnosis: Left obstructing UPJ calculus Post-Operative Diagnosis: Same Surgery/Procedure Performed:: Cystoscopy with left ureteral stent insertion Surgeon: Beba Hendricks Type of Anesthesia: MAC Specimen's removed: Urine for culture Description of Procedure: The patient is a 71-year-old female with an obstructing left UPJ calculus with uncontrolled pain, nausea and vomiting. She presents for cystoscopy with left ureteral stent insertion. Informed consent was obtained. The patient was taken to the operating room and placed on the operating room table. Anesthesia monitored the head, neck, airway, IV access and vital signs throughout the case. Once anesthesia was appropriate ministered, the patient was placed into dorsolithotomy position and was prepped and draped in usual sterile fashion. The cystoscope was inserted through the urethra under direct visualization into the urinary bladder. The bladder mucosa was visualized revealing no evidence of mass, erythema, foreign body. The left ureteral orifice was intubated with a 0.035 Glidewire. The Glidewire was seen curling above the stone on fluoroscopic evaluation. A 6 [place] 26 cm JJ stent was then passed over the wire with good curling in the renal pelvis as well as the urinary bladder. The patient's bladder was emptied and the urine was sent for culture. The patient was then awakened and taken to the recovery room in good condition. There were no complications during this procedure. Grafts/Implants Used: 6 x 26 JJ stent Admit VTE Documentation VTE Mechan Device Prophylaxis: SCD's VTE Pharm Prophylaxis ordered?: No Reason prophylaxis not ordered:: Treatment Not Indicated
[2022-01-08] MEDS: FLUoxetine 20 MG Capsule PO (11:40)
[2022-01-08] MEDS: APIXABAN 5 MG TABLET PO (11:40)
[2022-01-08] MEDS: Lisinopril 5 MG Tablet PO (11:40)
== END 2022-01-08 15:22 | disposition home or self-care (01) ==
LOC: ED 23:38 → MS3 01-08 00:02
PROVIDERS: Admitting Provider Urology; Emergency Provider Emergency Medicine; PCP Student in an Organized Health Care Education/Training Program; Visit Provider Urology
PROC: (CPT 52332; principal; 2022-01-08 09:50)
DX: N20.1 Calculus of ureter (principal); I48.91 Unspecified atrial fibrillation; R73.03 Prediabetes; Z79.01 Long term (current) use of anticoagulants; I10 Essential (primary) hypertension; J45.909 Unspecified asthma, uncomplicated
CPT/HCPCS: 52332; 00910; 74018; 76000; 80053; 81001; 85025; 85610; 85730; 87086; 93005; 96361; 96374; 96375; 96376; 99218; 99284; J7030; J7120; A4216; C2617; G0378; J0744; J2405; J7799

== ENCOUNTER 2022-01-30 12:00 | Day surgery (SDC) | payer MEDICARE, SELFPAY ==
[2022-01-30] VITALS (9 sets, daily range): BP systolic 125–154; BP diastolic 66–84; PULSE 65–79; RESP 16–18; TEMP 36.1–37; O2SAT 93–97; BMI 26.7
[2022-01-30] MEDS: Lactated Ringers 1,000 ML 15 ML IV (12:57)
--- NOTE | 2022-01-30 13:29 | OP.PCM_ITS ---
Report of Operation Date of Procedure: 01/30/22 Pre-Operative Diagnosis: Left renal calculus Post-Operative Diagnosis: Same Surgery/Procedure Performed:: Left renal extracorporal shockwave lithotripsy Surgeon: Beba Hendricks Type of Anesthesia: General Specimen's removed: None Description of Procedure: The patient is a 71-year-old female with a left renal calculus, status post cystoscopy with left ureteral stent insertion.? She presents for extracorporeal shockwave lithotripsy.? Informed consent has been obtained.? The patient was taken to the operating room and placed in a supine position on the lithotripter table.? Anesthesia monitored the head, neck, airway, IV access and vital signs throughout the case.? Once anesthesia was appropriately administered, the p atient was appropriately aligned on the table with appropriate visualization of the stone.? 3000 shocks were then applied to the calculus which appeared to be fragmented at the conclusion of the case.? The patient was then awakened and taken to the recovery room in good condition.? There were no complications during this procedure. Grafts/Implants Used:?None Grafts/Implants Used: None Complications none Admit VTE Documentation VTE Present on Admission: Yes VTE Mechan Device Prophylaxis: SCD's VTE Pharm Prophylaxis ordered?: Yes
--- NOTE | 2022-01-30 13:31 | DCINST_ITS ---
Discharge Instructions Diet Discharge Diet: No restrictions Activity Discharge Activity: Return to Normal Activity Dressing / Incision Call your doctor if you observe: Fever of 101 or Higher, Inability to urinate and Inability to have a bowel movement Follow Up Care Please Follow Up With: Beba Hendricks MD When: In the office in 2 to 3 weeks with a KUB for possible cystoscopy and stent removal. Call for appointment Test Results: Test results from this visit will be discussed in further detail at your follow- up appointment, if applicable. Discharge Plan Admission Attending Provider: Beba Hendricks Primary Care Provider: Mono Morrison Discharge Orders/Prescriptions Prescriptions: New nitrofurantoin monohyd/m-cryst [Macrobid] 100 mg capsule 100 mg PO BID Qty: 6 0RF Rx Instructions: must administer with a meal/food Continued metoprolol succinate 50 MG tablet 50 mg PO DAILY lisinopril 5 MG tablet 5 mg PO DAILY Label Comments: Take 1 tablet by mouth once daily. fluoxetine 20 MG capsule 20 mg PO DAILY Label Comments: Take 1 capsule by mouth once daily. rosuvastatin 20 MG tablet 20 mg PO QHS Label Comments: TAKE 1 TABLET BY MOUTH AT BEDTIME apixaban 5 MG tablet 5 mg PO BID Label Comments: STOPPONG 3 DAYS PRIOR-LAST DOSE 01/26/22 ondansetron 4 mg tablet,disintegrating 4 mg PO Q8H PRN (Reason: nausea and vomiting) Qty: 10 0RF cyanocobalamin (vitamin B-12) [Vitamin B-12] 1,000 mcg Tablet 1,000 mcg PO DAILY ascorbic acid (vitamin C) [Vitamin C] 500 mg Tablet 500 mg PO DAILY phenazopyridine 95 mg Tablet 95 mg PO TID PRN (Reason: URINATION) biotin 10,000 mcg Capsule 10,000 mcg PO DAILY magnesium 250 mg Tablet 250 mg PO DAILY albuterol sulfate 90 mcg/actuation Hfa Aerosol Inhaler 1 puff INHALATION Q6H PRN (Reason: ASTHMA) cholecalciferol (vitamin D3) [Vitamin D3] 125 mcg (5,000 unit) Tablet 125 mcg PO DAILY Centrum Silver Women 8 mg iron-400 mcg-300 mcg Tablet 1 tab PO DAILY Caltrate 600 plus D 600 mg-20 mcg (800 unit) Tablet,Chewable 1 tab PO DAILY hydrocodone-acetaminophen 5-325 mg tablet 1 tab PO Q6H PRN (Reason: pain) 3 Days Qty: 12 0RF Discontinued oxycodone-acetaminophen [oxycodone-acetaminophen] 5-325 mg tablet 2 tab PO Q8H PRN PRN (Reason: Pain) 7 Days Qty: 20 0RF Referrals / Follow Up: Mono Morrison DO [Primary Care Provider] - Disposition Disposition (needs filled in before D/C Order can be placed): Home, Self Care
[2022-01-30] MEDS: Ciprofloxacin 400 MG/200 ML BAG 200 MG IV (13:33)
[2022-01-30] MEDS: Ondansetron 4 MG/2 ML Vial IV (16:33)
[2022-01-30] MEDS: Scopolamine 1mg/72hr Patch 1 PATCH TD (16:44)
== END 2022-01-30 17:32 | disposition home or self-care (01) ==
LOC: SDC 12:25 → AC 13:02
PROVIDERS: PCP Student in an Organized Health Care Education/Training Program; Referring Provider Urology; Visit Provider Urology
PROC: (CPT 50590; principal; 2022-01-30 13:15)
DX: N20.0 Calculus of kidney (principal); I48.91 Unspecified atrial fibrillation; N39.0 Urinary tract infection, site not specified; R10.9 Unspecified abdominal pain; K21.9 Gastro-esophageal reflux disease without esophagitis; F32.A Depression, unspecified; Z85.3 Personal history of malignant neoplasm of breast; I10 Essential (primary) hypertension; Z87.442 Personal history of urinary calculi; R73.03 Prediabetes
CPT/HCPCS: 50590; 00873; J7120; A4216; J0744; J2405

== ENCOUNTER → 2022-02-20 | Outpatient (CLI) | payer MEDICARE, SELFPAY ==
--- NOTE | 2022-02-20 10:43 | RAD_ITS ---
EXAM: XR ABDOMEN, 1 VIEW CLINICAL INDICATION: KIDNEY STONE TECHNIQUE: Frontal supine view of the abdomen/pelvis. This report was created using [employer] report generation technology. COMPARISON: AP abdomen January 07, 2022, there was prominent 1.5 cm x 1 cm presumed stone expected region of the left UVJ or proximal ureter at the level of L2-3. FINDINGS: LOWER THORAX: No acute pathology. GASTROINTESTINAL TRACT: Mild gas in the hepatic flexure. Otherwise minimal bowel gas. Non-obstructive. No bowel or stomach distention. ORGANS: Previous presumed stone in the left urinary tract is no longer apparent. Well-positioned left ureteral stent, proximal end at the level of L2-3, distal end in expected region of the midline-slightly right urinary bladder. No organomegaly. BONES/JOINTS: No acute pathology. SOFT TISSUES: No acute pathology. RAD/Abdomen Single View IMPRESSION: Adequately positioned left ureteral stent. Minimal bowel gas. Electronically Signed: Klarissa Monsivais MD at 8:16 EST ,
== END | disposition home or self-care (01) ==
PROVIDERS: PCP Student in an Organized Health Care Education/Training Program; Referring Provider Urology; Visit Provider Urology
DX: N20.0 Calculus of kidney (principal)
CPT/HCPCS: 74018

== ENCOUNTER → 2022-04-02 | Outpatient (CLI) | payer MEDICARE, SELFPAY ==
--- NOTE | 2022-04-02 | US_ITS ---
STUDY: RENAL ULTRASOUND - COMPLETE REASON FOR EXAM: Female, 71 years old. RENAL INSUFF TECHNIQUE: Ultrasound evaluation of the kidneys was performed with real-time and static oh-scale imaging. COMPARISON: None. FINDINGS: RIGHT KIDNEY: Normal location of the right kidney, which is normal in size. The right kidney measures 10.2 cm x 5.7 cm x 5.4 cm. There is a normal cortex of the right kidney. The renal cortex measures 1.4 cm. There is no right renal mass or cyst. There are no right renal calculi. There is no right hydronephrosis. DISTAL RIGHT URETER: There is non-visualization of the distal right ureter. There is no demonstrated right ureterovesical junction calculus. There is a visualized right ureteral jet. LEFT KIDNEY: Normal location of the left kidney, which is normal in size. The left kidney measures 10 cm x 4.5 cm x 4.6 cm. There is a normal cortex of the left kidney. The renal cortex measures 1.8 cm. There is no left renal mass or cyst. There are no left renal calculi. There is no left hydronephrosis. DISTAL LEFT URETER: There is non-visualization of the distal left ureter. There is no demonstrated left ureterovesical junction calculus. There is a visualized left ureteral jet. BLADDER: The distended urinary bladder has a volume of 136 ml. There is a normal wall thickness of the distended urinary bladder. There is no demonstrated mass within the urinary bladder. There are no demonstrated bladder calculi. US/Kidney and Bladder IMPRESSION: Normal ultrasound of the kidneys and urinary bladder. Electronically Signed: Jeff Patricia MD at 15:49 EST ,
== END | disposition home or self-care (01) ==
PROVIDERS: PCP Student in an Organized Health Care Education/Training Program; Visit Provider Urology
DX: N28.9 Disorder of kidney and ureter, unspecified (principal)
CPT/HCPCS: 76770

== ENCOUNTER → 2023-10-14 | Outpatient (CLI) | payer MEDICARE, SELFPAY ==
--- NOTE | 2023-10-14 11:40 | RAD_ITS ---
EXAM: XR ABDOMEN, 1 VIEW CLINICAL INDICATION: KUB TECHNIQUE: Frontal supine view of the abdomen/pelvis. COMPARISON: No relevant prior studies available. FINDINGS: GASTROINTESTINAL TRACT: Normal bowel gas pattern. ORGANS: No organomegaly. BONES/JOINTS: No acute abnormality. RAD/Abdomen Single View IMPRESSION: No acute abnormality. Electronically Signed: Velasquez Jordan MD at 8:45 EDT ,
== END | disposition home or self-care (01) ==
LOC: MTRAD 11:38
PROVIDERS: PCP Student in an Organized Health Care Education/Training Program; Referring Provider Urology; Visit Provider Urology
DX: N20.0 Calculus of kidney (principal)
CPT/HCPCS: 74018

== ENCOUNTER 2024-03-01 11:31 | Emergency (ER) | payer MEDICARE, SELFPAY ==
[2024-03-01 11:31] VITALS: BP 168/72; PULSE 68; RESP 14; TEMP 36.8; O2SAT 98; BMI 29.4
--- NOTE | 2024-03-01 11:52 | EX.ED.GENINJ ---
HPI History of Present Illness Chief Complaint: Head Injury Narrative Narrative: Chief complaint and HPI: Mechanical fall and right hand pain. 73-year-old female with history of atrial fibrillation on Eliquis, HTN, HLD presents for evaluation of mechanical fall and right hand pain. 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 She states one of the cats got under her feet and caused a mechanical fall. She states she mostly landed on her right hand. States she did hit her right forehead. Denies any headache, vision changes, neck pain, facial pain, chest pain, shortness of breath, abdominal pain, nausea, vomiting. Endorses right dorsal hand pain along the second metacarpal. Denies any numbness or tingling. Was seen at urgent care and referred to the emergency department. Review of systems: See HPI Medications: As listed on the chart Allergies: As listed on the chart PFSH: Per chart Vital signs: As listed on the chart. Reviewed. Physical exam: Gen: A&O x3, NAD Head: Normocephalic, small abrasion to right frontal forehead Eyes: No sclera icterus, conjunctiva clear, PERRL, EOMI ENT: TMs clear BL, moist mucous membranes, no swelling/lacerations/blood in the mouth or the nares, No nasal septal hematoma, no facial tenderness Neck: Trachea midline, No JVD, Nontender, full range of motion CV: RRR, no murmurs, no chest wall TTP Resp: Lungs CTA BL, no w/r/c GI: Abd soft, non-distended, non-tender, no r/r/g Musc: Full ROM, no deformity, small area of ecchymosis and swelling to the right dorsal hand around the second metacarpal-full range of motion of the hand and fingers, no snuffbox tenderness, radial and ulnar pulses +2, no spinal TTP, no lelia step-offs Skin: Warm, dry, intact Neuro: Alert, oriented, grossly intact, sensation intact, GCS 15 Psych: Cooperative, appropriate mood and affect [facility] Medical History (Updated 03/01/24 @ 12:[address] Yasmani Villalapndo, ) Wears glasses Cancer Arthritis Kidney stones High cholesterol Back pain Gastric reflux Non-smoker Leg cramps History of echocardiogram Hypertension Cardiology follow-up encounter History of atrial fibrillation Renal insufficiency Post-menopausal History of stress test Depression Asthma Atrial fibrillation HX: breast cancer Pre-diabetes Home Medications ?Medication ?Instructions ?Recorded ?Last Taken ?Type apixaban 5 mg tablet 5 mg PO BID 10/17/18 01/26/22 History fluoxetine 20 mg capsule 20 mg PO DAILY 10/17/18 Unknown History lisinopril 5 mg tablet 5 mg PO DAILY 10/17/18 01/30/22 History metoprolol succinate 50 mg 50 mg PO DAILY 10/17/18 01/29/22 History tablet,extended release 24 hr rosuvastatin 20 mg tablet 20 mg PO QHS 10/17/18 Unknown History ondansetron 4 mg disintegrating 4 mg PO Q8H PRN nausea and 01/02/22 Unknown Rx tablet vomiting #10 tabs albuterol sulfate 90 mcg/actuation 1 puff inhalation Q6H PRN ASTHMA 01/24/22 Unknown History aerosol inhaler ascorbic acid (vitamin C) 500 mg 500 mg PO DAILY 01/24/22 Unknown History tablet (Vitamin C) biotin 10,000 mcg capsule 10,000 mcg PO DAILY 01/24/22 Unknown History calcium 600 mg (as carbonate)-vit 1 tab PO DAILY 01/24/22 Unknown History D3 20 mcg (800 unit) chewable tablet (Caltrate plus D) cholecalciferol (vitamin D3) 125 125 mcg PO DAILY 01/24/22 Unknown History mcg (5,000 unit) tablet (Vitamin D3) cyanocobalamin (vitamin B-12) 1,000 mcg PO DAILY 01/24/22 Unknown History 1,000 mcg tablet (Vitamin B-12) magnesium 250 mg tablet 250 mg PO DAILY 01/24/22 Unknown History [id number]-[id number] 8 mg-folic 400 1 tab PO DAILY 01/24/22 Unknown History mcg-K 50 mcg-lutein 300 mcg tablet (Centrum Silver Women) phenazopyridine 95 mg tablet 95 mg PO TID PRN URINATION 01/24/22 Unknown History hydrocodone-acetaminophen 5-325mg 1 tab PO Q6H PRN pain 3 days #12 01/30/22 Unknown Rx 5mg-325mg tabs nitrofurantoin 100 mg PO BID #6 caps 01/30/22 Unknown Rx monohydrate/macrocrystals 100 mg capsule (Macrobid) Allergy/AdvReac Type Severity Reaction Status Date / Time adhesive tape (surgical tape) Allergy Hives Verified 03/01/24 11:32 amoxicillin Allergy Hives Verified 03/01/24 11:32 cephalexin (From Keflex) Allergy Rash Verified 03/01/24 11:32 clavulanic acid (From Allergy Hives Verified 03/01/24 11:32 Augmentin) Penicillins Allergy Hives Verified 03/01/24 11:32 codeine AdvReac Vomiting Verified 03/01/24 11:32 Surgical History Hx of cystoscopy Hx of surgical procedure History of lumpectomy of right breast Hx of appendectomy Social History Smoking Status: Never smoker EXAM Physical Exam Const Vital Signs: 03/01/24 11:31 03/01/24 11:38 Temperature 98.2 F Temperature Source Temporal Pulse Rate 68 Respiratory Rate 14 Respiratory Effort Normal Non-Labored Respiratory Depth Normal Respiratory Pattern Normal Blood Pressure 168/72 H Blood Pressure Mean 104 Pulse Ox 98 Oxygen Delivery Method Room Air Room Air MDM MDM MDM Narrative Medical decision making narrative: 73-year-old female with history of atrial fibrillation on Eliquis, HTN, HLD presents for evaluation of mechanical fall and right hand pain. Differential diagnosis includes but is not limited to right hand contusion, right hand fracture, forehead contusion, intracranial bleed. Given that patient is on Eliquis and hit her head we will obtain CT head to rule out intracranial bleed. Patient had no LOC. Patient cervical spine is nontender. She is negative per the Nexus C-spine rule. X-ray of the right hand obtained. Given this was purely mechanical fall I do not think any further imaging or laboratory workup is needed. CT head without any acute traumatic injury. X-ray of the right hand was interpreted and reviewed by me, no fracture or dislocation. Patient is stable to discharge home. Patient has a right hand contusion. Patient is updated of all results. Monitor for signs of concussion. Follow-up with PCP. She confirmed understand the plan. Impression: 1. Mechanical fall 2. Closed head injury on blood thinner 3. Right hand contusion Radiography Diagnostic Testing: Clinical Impression(s) from Imaging Studies Brain CT 03/01/24 12:02 IMPRESSION: Chronic involutional changes of the brain. Electronically Signed: Jeff Patricai MD at 12:16 EST , Hand X-Ray 03/01/24 12:10 IMPRESSION: Degenerative changes. No fracture is seen. Electronically Signed: Jeff Patricia MD at 12:21 EST , Discharge Plan Triage Chief Complaint: Head Injury ED Provider: Yasmani Villalpando Dx/Rx/DC Orders Clinical Impression: Accident due to mechanical fall without injury, Contusion of right hand Instructions: ED Hand Contusion, ED Head Injury (Adult) Prescriptions: No Action metoprolol succinate 50 MG tablet 50 mg PO DAILY lisinopril 5 MG tablet 5 mg PO DAILY Patient Comments: Take 1 tablet by mouth once daily. fluoxetine 20 MG capsule 20 mg PO DAILY Patient Comments: Take 1 capsule by mouth once daily. rosuvastatin 20 MG tablet 20 mg PO QHS Patient Comments: TAKE 1 TABLET BY MOUTH AT BEDTIME apixaban 5 MG tablet 5 mg PO BID Patient Comments: STOPPONG 3 DAYS PRIOR-LAST DOSE 01/26/22 ondansetron 4 mg tablet,disintegrating 4 mg PO Q8H PRN (Reason: nausea and vomiting) Qty: 10 0RF cyanocobalamin (vitamin B-12) [Vitamin B-12] 1,000 mcg Tablet 1,000 mcg PO DAILY ascorbic acid (vitamin C) [Vitamin C] 500 mg Tablet 500 mg PO DAILY phenazopyridine 95 mg Tablet 95 mg PO TID PRN (Reason: URINATION) biotin 10,000 mcg Capsule 10,000 mcg PO DAILY magnesium 250 mg Tablet 250 mg PO DAILY albuterol sulfate 90 mcg/actuation Hfa Aerosol Inhaler 1 puff INHALATION Q6H PRN (Reason: ASTHMA) cholecalciferol (vitamin D3) [Vitamin D3] 125 mcg (5,000 unit) Tablet 125 mcg PO DAILY Centrum Silver Women 8 mg iron-400 mcg-300 mcg Tablet 1 tab PO DAILY Caltrate 600 plus D 600 mg-20 mcg (800 unit) Tablet,Chewable 1 tab PO DAILY hydrocodone-acetaminophen 5-325 mg tablet 1 tab PO Q6H PRN (Reason: pain) 3 Days Qty: 12 0RF nitrofurantoin monohyd/m-cryst [Macrobid] 100 mg capsule 100 mg PO BID Qty: 6 0RF Rx Instructions: must administer with a meal/food Primary Care Provider: Mono Morrison Referrals: Mono Morrison DO [Primary Care Provider] - 3-5 Days Activity Restrictions/Additional Instructions: Tylenol as needed for pain. Follow-up with primary care physician. Print Language: Citizen [place] Disposition Disposition: Home, Self Care
--- NOTE | 2024-03-01 12:02 | CT_ITS ---
STUDY: CT BRAIN WITHOUT CONTRAST REASON FOR EXAM: Female, 73 years old. Head injury due to a fall. The patient is on blood thinners. RADIATION DOSAGE (If Supplied By Facility): CTDIvol = ( 44.99 ) mGy, DLP = ( 812.98 ) mGycm TECHNIQUE: Transaxial CT imaging of the brain was performed without administration of intravenous contrast material. Individualized dose optimization techniques were used for this CT. COMPARISON: No relevant priors. FINDINGS: Normal soft tissue structures. Normal calvarium. There is mild cerebral atrophy with widening of the extra-axial spaces and ventricular dilatation. There are areas of decreased attenuation within the white matter tracts of the supratentorial brain, consistent with microvascular disease changes. Normal basal ganglia and thalami. Normal brainstem. Normal cerebellum. There is no intracranial hemorrhage. There are no findings of an acute ischemic infarction. Atherosclerotic calcification of the vertebral arteries and cavernous portions of the internal carotid arteries bilaterally. Normal visualized paranasal sinuses. CT/Brain/Head without Contrast IMPRESSION: Chronic involutional changes of the brain. Electronically Signed: Jeff Patricia MD at 12:16 EST ,
--- NOTE | 2024-03-01 12:10 | RAD_ITS ---
STUDY: X-RAY - RIGHT HAND REASON FOR EXAM: Female, 73 years old. Pain, fall TECHNIQUE: 3 view(s) of the hand. COMPARISON: None. FINDINGS: Normal radiocarpal articulation. Normal distal radioulnar joint. Normal visualized carpal bones. Normal carpal articulations Normal carpometacarpal articulation of the thumb. Normal second through fifth carpometacarpal joints. Normal metacarpi. Normal metacarpophalangeal joint of the thumb. Normal interphalangeal joint of the thumb. Normal proximal and distal phalanges of the thumb. Normal metacarpophalangeal joints of the second through fifth fingers. There is articular joint space narrowing of the proximal and distal interphalangeal joints of the second through fifth fingers, but without erosive changes or periarticular soft tissue swelling. Normal phalanges of the second through fifth fingers. The soft tissue structures are unremarkable. RAD/Hand Min 3 Views IMPRESSION: Degenerative changes. No fracture is seen. Electronically Signed: Jeff Patricia MD at 12:21 EST ,
== END 2024-03-01 12:59 | disposition home or self-care (01) ==
PROVIDERS: Emergency Provider Surgery; PCP Student in an Organized Health Care Education/Training Program; Visit Provider Surgery
DX: S09.90XA Unspecified injury of head, initial encounter (principal); I48.91 Unspecified atrial fibrillation; S60.221A Contusion of right hand, initial encounter; E78.00 Pure hypercholesterolemia, unspecified; I10 Essential (primary) hypertension; W01.10XA Fall on same level from slipping, tripping and stumbling with subsequent striking against unspecified object, initial encounter; Y93.K9 Activity, other involving animal care; Z79.01 Long term (current) use of anticoagulants; Z85.3 Personal history of malignant neoplasm of breast; F32.A Depression, unspecified; Z79.899 Other long term (current) drug therapy; Z90.49 Acquired absence of other specified parts of digestive tract
CPT/HCPCS: 70450; 73130; 99282

== ENCOUNTER 2024-06-23 08:51 | Outpatient (RCR) | payer SELFPAY | END 2024-07-16 23:59 | LOC: NS 08:51 | PROVIDERS: PCP Student in an Organized Health Care Education/Training Program | DX: Z71.3 Dietary counseling and surveillance (principal) ==

== ENCOUNTER 2024-12-08 17:30 | Outpatient (RCR) | payer SELFPAY | END 2024-12-16 23:59 | LOC: NS 17:30 | PROVIDERS: PCP Student in an Organized Health Care Education/Training Program | DX: Z71.3 Dietary counseling and surveillance (principal) ==

== ENCOUNTER 2024-12-15 11:58 | Outpatient (RCR) | payer SELFPAY | END 2024-12-16 23:59 | LOC: NS 11:58 | PROVIDERS: PCP Student in an Organized Health Care Education/Training Program | DX: Z71.3 Dietary counseling and surveillance (principal) ==